=== PATIENT | male | born 1935 | race Caucasian/White ===

== ENCOUNTER 2018-05-30 19:16 | Inpatient (IN) ==
--- NOTE | 2018-05-30 19:37 | ED ---
[facility] General Chief complaint: Neuro Symptoms/Deficit Stated complaint: Chest pain Time Seen by Provider: 05/30/18 19:33 Source: patient Mode of arrival: ambulatory Limitations: no limitations History of Present Illness HPI narrative: 82yo M with PMH of HTN and DM presents to the ED for evaluation today because at 4pm he started having numbness in left arm along with some left arm weakness. Then started having numbness in left face and left tongue as well as left leg weakness. Said his symptoms have pretty much resolved except for a very mild numbness in left tongue and face. Denies any history of stroke. Denies any fever, cough, chest pain, sob, n/v, abdominal pain, focal weakness or numbness. Related Data Home Medications Medication Instructions Recorded Confirmed metformin 500 mg PO DAILY 05/30/18 05/30/18 tamsulosin 0.4 mg PO DAILY 05/30/18 05/30/18 Allergies Allergy/AdvReac Type Severity Reaction Status Date / Time No Known Allergies Allergy Severe Uncoded 12/24/09 09:29 Review of Systems ROS Unobtainable All other systems reviewed negative except as stated in HPI [facility] Social History Social History Substance History: No History of Abuse Smoking Status: Never smoker How Often Do You Have a Drink Containing Alcohol: Never Recent Travel in [facility] within the Last 8 Weeks: Yes Recent Out of Country Travel within the Last 8 Weeks: No Exam Narrative Exam Narrative: GENERAL: 82yo M not in distress. SKIN: Focused skin assessment warm/dry. HEAD: Atraumatic. Normocephalic. EYES: Pupils equal and round at 3mm bilaterally. EOMI. ENT: No nasal bleeding or discharge. Mucous membranes pink and moist. NECK: Trachea midline. No JVD. CARDIOVASCULAR: Regular rate and rhythm. No murmur appreciated. RESPIRATORY: No accessory muscle use. Clear to auscultation. Breath sounds equal bilaterally. GASTROINTESTINAL: Abdomen soft, non-tender, nondistended. MUSCULOSKELETAL: No obvious deformities. No clubbing. No cyanosis. No edema. NEUROLOGICAL: Awake and alert. No obvious cranial nerve deficits. Motor grossly within normal limits in all extremities. Sensation equal in bilateral face, arms and legs. Normal speech. NIH stroke scale 0. PSYCHIATRIC: Appropriate mood and affect; insight and judgment normal. Course Initial Documented Vital Signs Temperature 98.1 F 05/30/18 19:25 Pulse Rate 75 05/30/18 19:25 Respiratory Rate 18 05/30/18 19:25 Blood Pressure 155/79 H 05/30/18 19:25 Pulse Oximetry 97 05/30/18 19:25 Last Documented Vital Signs Temperature 98.1 F 05/30/18 19:25 Pulse Rate 62 05/30/18 23:40 Respiratory Rate 16 05/30/18 23:40 Blood Pressure 173/74 H 05/30/18 23:40 Pulse Oximetry 95 05/30/18 23:40 Medical Decision Making MDM Narrative Medical decision making narrative: 82yo M here with left sided numbness/ weakness today that has resolved mostly. Still feels like left face and tongue is not quite back to baseline but sensation is equal on exam. Labs reviewed, no leukocytosis. H/H normal. BUN mildly elevated at 20. CT brain showed no acute intracranial abnormality. Pt given aspirin. Discussed with Dr. Mitchell for observation for TIA work up and accepted to his service. Differential Diagnosis Differential Diagnosis: TIA vs. lacunar infarct Lab Data Result diagrams: 05/30/18 19:25 05/30/18 19:25 Lab Results 05/30/18 05/30/18 05/30/18 Range/Units 19:25 19:25 19:25 CBC w Diff Auto diff final WBC 7.4 (4.0-11.0) th/mm3 RBC 4.79 (4.50-5.90) mil/mm3 Hgb 14.3 (13.0-17.0) gm/dL Hct 42.5 (39.0-51.0) % MCV 88.9 (80.0-100.0) fL MCH 29.9 (27.0-34.0) pg MCHC 33.7 (32.0-36.0) % RDW 13.1 (11.6-17.2) % Plt Count 244 (150-450) th/mm3 MPV 8.4 (7.0-11.0) fL Neut % (Auto) 60.1 (16.0-70.0) % Lymph % (Auto) 23.5 (9.0-44.0) % [place] % (Auto) 8.6 H (0.0-8.0) % Eos % (Auto) 7.0 H (0.0-4.0) % Baso % (Auto) 0.8 (0.0-2.0) % Neut # (Auto) 4.5 (1.8-7.7) th/mm3 Lymph # (Auto) 1.7 (1.0-4.8) th/mm3 [place] # (Auto) 0.6 (0.0-0.9) th/mm3 Eos # (Auto) 0.5 H (0.0-0.4) th/mm3 Baso # (Auto) 0.1 (0.0-0.2) th/mm3 WBC Differential . Differential Comment . PT 10.3 (9.8-11.6) sec INR 1.0 Ratio APTT 25.4 (24.3-30.1) sec Sodium 138 (136-145) meq/L Potassium 4.0 (3.5-5.1) meq/L Chloride 106 (98-107) meq/L Carbon Dioxide 24.3 (21.0-32.0) meq/L Anion Gap 8 (5-15) meq/L BUN 20 H (7-18) mg/dL Creatinine 1.00 (0.60-1.30) mg/dL Estimated GFR 72 L (>89) mL/min Random Glucose 143 H (74-106) mg/dL Calcium 8.5 (8.5-10.1) mg/dL Imaging Data Radiologist's impression: Head CT 05/30/18 19:33 CONCLUSION: 1. No acute intracranial abnormalities. . Discharge Plan Discharge Disposition Patient Disposition: 30 Still Patient Physicians Team ED Provider: Maliha Sharif Primary Care Provider: Wilbert Spain Attending Provider: Cipriano Mitchell Status ED Status: Left Department Discharge Information Discharge Date/Time: 05/30/18 23:45
[2018-05-30 19:51] LABS: Baso # (Auto) 0.1 th/mm3 (0.0-0.2); Baso % (Auto) 0.8 % (0.0-2.0); Eos # (Auto) 0.5 th/mm3 (0.0-0.4); Hematocrit 42.5 % (39.0-51.0); Hemoglobin 14.3 gm/dL (13.0-17.0); Lymph # (Auto) 1.7 th/mm3 (1.0-4.8); Lymph % (Auto) 23.5 % (9.0-44.0); Mean Corpuscular HGB Conc 33.7 % (32.0-36.0); Mean Corpuscular Hemoglobin 29.9 pg (27.0-34.0); Mean Corpuscular Volume 88.9 fL (80.0-100.0); Mean Platelet Volume 8.4 fL (7.0-11.0); Mono # (Auto) 0.6 th/mm3 (0.0-0.9); Mono % (Auto) 8.6 % (0.0-8.0); Neut # (Auto) 4.5 th/mm3 (1.8-7.7); Neut % (Auto) 60.1 % (16.0-70.0); Platelet Count 244 th/mm3 (150-450); Red Blood Count 4.79 mil/mm3 (4.50-5.90); Red Cell Distribution Width 13.1 % (11.6-17.2); White Blood Count 7.4 th/mm3 (4.0-11.0)
[2018-05-30 20:02] LABS: Calcium 8.5 mg/dL (8.5-10.1); Carbon Dioxide 24.3 meq/L (21.0-32.0)
[2018-05-30 20:07] LABS: Activated Partial Thrombo Time 25.4 sec (24.3-30.1); Prothrombin Time 10.3 sec (9.8-11.6)
--- NOTE | 2018-05-30 20:17 | CT ---
EXAM DATE: 05/30/2018 8:05 PM EDT AGE/SEX: 82 years / Male INDICATIONS: Weakness and numbness left side of body and tongue. CLINICAL DATA: This is the patient's initial encounter. Patient reports that signs and symptoms have been present for 1 day and indicates a pain score of 0/10. MEDICAL/SURGICAL HISTORY: None. None. RADIATION DOSE: 57.29 CTDI (mGy) COMPARISON: No prior exams available for comparison. TECHNIQUE: CT of the head without contrast. Using automated exposure control and adjustment of the mA and/or kV according to patient size, radiation dose was kept as low as reasonably achievable to ob tain optimal diagnostic quality images. DICOM format image data is available electronically for revi ew and comparison. FINDINGS: Cerebrum: The ventricles are normal for age. No evidence of midline shift, mass lesion, hemorrhage or acute infarction. No extraaxial fluid collections are seen. Posterior Fossa: The cerebellum and brainstem are intact. The 4th ventricle is midline. The cerebe llopontine angle is unremarkable. Extracranial: The visualized portion of the orbits is intact. Skull: The calvaria is intact. No evidence of skull fracture. CONCLUSION: 1. No acute intracranial abnormalities. . Electronically signed by: Gurdeep Peace MD 05/30/2018 8:16 PM EDT
[2018-05-30] MEDS ORDERED: Aspirin 325 MG Tablet PO ONE (20:50)
[2018-05-30] MEDS ORDERED: Dextrose 50% in Water 50 ML Vial IV.PUSH PRN (21:36)
[2018-05-31] MEDS: Insulin NovoLOG Aspart Correctional Sugar Inj SQ SCH ×4 (08:00→22:15)
[2018-05-31] MEDS: Aspirin 325 MG Tablet PO SCH (08:45)
--- NOTE | 2018-05-31 08:51 | US ---
EXAM DATE: 05/31/2018 8:41 AM EDT AGE/SEX: 82 years / Male INDICATIONS: Left sided numbness and weakness. CLINICAL DATA: This is the patient's initial encounter. Patient reports that signs and symptoms have been present for 1 day and indicates a pain score of 0/10. MEDICAL/SURGICAL HISTORY: Hypertension. Hypercholesterolemia. Esophageal polyp. Pre-diabetes. . Nasal surgery. COMPARISON: No prior exams available for comparison. VELOCITY PARAMETERS: ICA/CCA Ratio: Right 3.5 , Left 0.6 ICA: Right 181 cm/sec, Left 55 cm/sec CCA: Right 51 cm/sec, Left 91 cm/sec ECA: Right 129 cm/sec, Left 129 cm/sec Vertebral: Right 44 cm/sec antegrade, Left 39 cm/sec antegrade FINDINGS: Right Carotid: There is moderate calcified atherosclerotic plaquing at the carotid bifurcation. There is some increased velocity within the right internal carotid artery. There is also some tortuosity o f the common carotid artery and internal carotid artery. Left Carotid: Mild arteriosclerotic plaque is visualized. The waveforms are within normal limits. Other: None. CONCLUSION: 1. Moderate calcified atherosclerotic plaquing at the right carotid bifurcation. There is elevated v elocity within the right internal carotid artery suggestive of at least a moderate stenosis. If clini jose ramon indicated, a CTA of the carotids could be performed for further evaluation. 2. Mild atherosclerotic plaquing at the left carotid bifurcation. No focal high-grade or hemodynamic ally significant stenosis. Electronically signed by: Arnel Corona MD 05/31/2018 8:49 AM EDT
--- NOTE | 2018-05-31 11:07 | MR ---
EXAM DATE: 05/31/2018 10:50 AM EDT AGE/SEX: 82 years / Male INDICATIONS: CVA. Left sided weakness. CLINICAL DATA: This is the patient's initial encounter. Patient reports that signs and symptoms have been present for 1 day and indicates a pain score of 0/10. MEDICAL/SURGICAL HISTORY: None. . Throat surgery. COMPARISON: No prior exams available for comparison. TECHNIQUE: 3D [id number] MRA was performed. Source images, multiplanar STS MIP, and 3D volum e MIP reconstructions were reviewed. FINDINGS: There is excellent visualization of the major intracranial arteries out to the second-order branch ve ssels. There appears to be a focal short segment stenosis involving the P2 segment on the right side. Otherwise, the vessels surrounding the tunica-biloxi of [place] are patent. No cerebral aneurysm or AV malfo rmation is demonstrated.. CONCLUSION: 1. Focal short segment stenosis involving the P2 segment on the right. 2. Otherwise, the rest the examination is unremarkable. Electronically signed by: Arnel Corona MD 05/31/2018 11:06 AM EDT
--- NOTE | 2018-05-31 11:10 | MR ---
EXAM DATE: 05/31/2018 10:50 AM EDT AGE/SEX: 82 years / Male INDICATIONS: CVA. Left sided weakness. CLINICAL DATA: This is the patient's initial encounter. Patient reports that signs and symptoms have been present for 1 day and indicates a pain score of 0/10. MEDICAL/SURGICAL HISTORY: None. . Throat surgery. COMPARISON: [facility], CT HEAD W/O CONTRAST, 05/30/2018. . TECHNIQUE: Multiplanar, multisequence examination of the brain was performed without contrast. FINDINGS: Cerebrum: The ventricles are normal for age. No evidence of midline shift, mass lesion, hemorrhage. . No extraaxial fluid collections are seen. The pituitary gland and suprasellar cistern are normal in configuration. White Matter: No significant signal abnormalities are seen in the white matter. There are some mild chronic white matter changes characteristic for patient's age. Posterior Fossa: The cerebellum and brainstem are intact. The 4th ventricle is midline. The cerebel lopontine angle is unremarkable. The cerebellar tonsils are normal in position. Diffusion Imaging: There is a focal small area of restricted diffusion involving the right thalamus consistent with a small focal acute infarction. The focal small acute infarction measures approximate ly 8 mm. Extracranial: The visualized portions of the orbits and paranasal sinuses are unremarkable. CONCLUSION: 1. Small focal acute infarction measuring approximately 8 mm in the right thalamic area. 2. Bilateral cortical atrophy and chronic white matter changes characteristic for patient's age. Electronically signed by: Arnel Corona MD 05/31/2018 11:09 AM EDT
[2018-05-31 11:35] LABS: Chol/HDL Ratio 4.25 Ratio; HDL Cholesterol 43.7 mg/dL (40.0-60.0)
--- NOTE | 2018-05-31 11:50 | P.HP ---
History of Present Illness Primary Care Physician: Wilbert Spain DO Chief Complaint: Left-sided numbness and paresthesia History of Present Illness: 82-year-old [place] male with known history of hypertension, hyperlipidemia, diabetes who was noted to emergency department because acute onset of neurological symptoms. Patient indicates that he had acute onset of left upper extremity numbness, paresthesia, weakness, left facial numbness, paresthesia with some numbness to the left side of his tongue. Because of that the patient came directly to the hospital for evaluation. Patient presented within 1 hour of onset of symptoms. Patient had evaluation done emergency department. NIH score was 0. Patient has CT scan done which did not indicate any acute abnormality. Is recommended by the ER physician that the patient be observed in the hospital for further evaluation and management. 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 This was explained to the patient extensively. Also spoke with the patient's daughter and son-in-law who are both physicians, hospitalist in [facility]. Family members indicated the patient is likely been noncompliant with his treatment for hypertension, hyperlipidemia. Patient states that he still has residual numbness and paresthesia of the left upper and lower extremities. Still having some difficulty with speech and numbness of the left side of his tongue. - Diagnosis (1) Acute cerebrovascular accident (CVA) Review of Systems All other systems reviewed negative except as stated in HPI Neurologic: Reports abnormal speech, Reports localized weakness, Reports tingling/numbness/burning sensations, Reports weakness PMFSH - History History Provided By: Patient - Medical History Medical History: Medical History (Last Reviewed 05/31/18 @ 11:23 by LUIS CARLOS Parekh) Esophageal polyp High cholesterol Hypertension Pre-diabetes - Surgical History Surgical History: Surgical History (Last Updated 05/31/18 @ 11:23 by LUIS CARLOS Parekh) History of nasal surgery Polyp in nasopharynx - Family History Family History: Family History (Last Updated 05/31/18 @ 11:24 by LUIS CARLOS Parekh) Mother History of diabetes mellitus Sister History of diabetes mellitus - Tobacco History Second Hand Smoke Exposure: No Tobacco Use In Past 30 Days: No Smoking Status: Never smoker - Alcohol History How Often Do You Have a Drink Containing Alcohol: Monthly or less - Substance Use History Substance History: No History of Abuse - Travel History Recent Travel in the [facility] Within the Last 8 Weeks: Yes Recent Travel Out of the Country Within the Last 8 Weeks: No - Immunization History Tetanus Immunization: Unsure Hx Influenza Vaccine This Season: No Medications and Allergies Active Medications: Active Medications Aspirin (Aspirin) 325 mg PO DAILY [facility] Last Admin: 05/31/18 08:45 Dose: 325 mg Dextrose (D50w Vial) 50 ml IV.PUSH UNSCH PRN PRN Reason: PER HYPOGLYCEMIA PROTOCOL Glucagon (Glucagon Inj) 1 mg OTHER PRN PRN PRN Reason: for Hypoglycemia Protocol Insulin Aspart (Novolog Insulin Correctional Sugar Inj) 0 unit SQ ACHS [facility]; Protocol Last Admin: 05/31/18 08:00 Dose: Not Given Allergies Allergy/AdvReac Type Severity Reaction Status Date / Time No Known Allergies Allergy Severe Uncoded 12/24/09 09:29 Home Medications Medication Instructions Recorded Confirmed Type metformin 500 mg PO DAILY 05/30/18 05/30/18 History tamsulosin 0.4 mg PO DAILY 05/30/18 05/30/18 History Exam Vital signs: Vital Signs 05/30/18 19:25 05/30/18 20:55 05/30/18 21:55 Temperature 98.1 F Pulse Rate 75 78 70 Respiratory Rate 18 18 16 Blood Pressure 155/79 H 155/87 H 175/92 H Pulse Oximetry 97 98 95 05/30/18 23:40 05/31/18 00:00 05/31/18 01:00 Temperature 97 F L Pulse Rate 62 70 78 Respiratory Rate 16 20 Blood Pressure 173/74 H 150/78 H Pulse Oximetry 95 97 05/31/18 01:32 05/31/18 04:00 05/31/18 08:50 Temperature 96.4 F L 97 F L 98.7 F Pulse Rate 110 H 64 79 Respiratory Rate 20 20 16 Blood Pressure 130/82 165/79 H 189/97 H Pulse Oximetry 99 97 97 Intake & Output 05/30/18 05/31/18 05/31/18 18:59 06:59 18:59 Intake Total 200 / 200 Balance 200 / 200 Weight 86 kg Intake: Oral 200 / 200 Other: # Voids 2 Weight On Admission 86 kg Narrative: GENERAL: Well-developed, well-nourished, in no acute distress. alert and orientated HEENT: Head is normocephalic without any lesions or masses noted. Facial features have a mild droop on the left side. Eyes: Pupils equal round reactive to light. Extraocular muscles are intact. Conjunctivae were clear. Oropharyngeal : Pharynx without any erythema edema. Tongue is midline without deviation. Buccal mucosa is moist without any masses or lesions NECK: Supple without any masses. Trachea midline no deviation. No JVD, no bruits are appreciated CARDIAC: Regular rhythm, regular rate. S1/S2 are heard. No murmurs gallops or rubs. LUNGS: Clear to auscultation bilaterally. No wheeze, rhonchi or rales. No use of accessory muscles on inspiration or expiration. ABDOMEN: Soft, nontender. Nondistended. Bowel sounds heard in all 4 quadrants. No organomegaly or masses. Negative rebound, negative guarding EXTREMITIES: No edema, pulses are equal bilaterally. No cyanosis or clubbing NEUROLOGY: Mood and affect appear appropriate. Cranial nerves II through XII grossly intact. Muscle strength 4/5 in the left upper extremity, 5/5 in right upper and bilateral lower extremities bilaterally. Deep tendon reflexes are 2+ in upper and lower extremities bilaterally. Results - Labs CBC & Chem 7: 05/30/18 19:25 05/30/18 19:25 Labs: Laboratory Results - last 24 hr 05/30/18 05/30/18 05/30/18 19:25 19:25 19:25 CBC w Diff Auto diff final WBC 7.4 RBC 4.79 Hgb 14.3 Hct 42.5 MCV 88.9 MCH 29.9 MCHC 33.7 RDW 13.1 Plt Count 244 MPV 8.4 Neut % (Auto) 60.1 Lymph % (Auto) 23.5 [place] % (Auto) 8.6 H Eos % (Auto) 7.0 H Baso % (Auto) 0.8 Neut # (Auto) 4.5 Lymph # (Auto) 1.7 [place] # (Auto) 0.6 Eos # (Auto) 0.5 H Baso # (Auto) 0.1 WBC Differential . Differential Comment . PT 10.3 INR 1.0 APTT 25.4 Sodium 138 Potassium 4.0 Chloride 106 Carbon Dioxide 24.3 Anion Gap 8 BUN 20 H Creatinine 1.00 Estimated GFR 72 L POC Glucose Random Glucose 143 H Calcium 8.5 Triglycerides Cholesterol LDL Cholesterol, Calc HDL Cholesterol Cholesterol/HDL Ratio 05/31/18 05/31/18 07:08 07:59 CBC w Diff WBC RBC Hgb Hct MCV MCH MCHC RDW Plt Count MPV Neut % (Auto) Lymph % (Auto) [place] % (Auto) Eos % (Auto) Baso % (Auto) Neut # (Auto) Lymph # (Auto) [place] # (Auto) Eos # (Auto) Baso # (Auto) WBC Differential Differential Comment PT INR APTT Sodium Potassium Chloride Carbon Dioxide Anion Gap BUN Creatinine Estimated GFR POC Glucose 111 H Random Glucose Calcium Triglycerides 110 Cholesterol 186 LDL Cholesterol, Calc 120 H HDL Cholesterol 43.7 Cholesterol/HDL Ratio 4.25 - Imaging Impressions Head CT 05/30/18 19:33 CONCLUSION: 1. No acute intracranial abnormalities. . Carotid Doppler Study 05/31/18 00:00 CONCLUSION: 1. Moderate calcified atherosclerotic plaquing at the right carotid bifurcation. There is elevated velocity within the right internal carotid artery suggestive of at least a moderate stenosis. If clinically indicated, a CTA of the carotids could be performed for further evaluation. 2. Mild atherosclerotic plaquing at the left carotid bifurcation. No focal high -grade or hemodynamically significant stenosis. Head MRI 05/31/18 00:00 CONCLUSION: 1. Small focal acute infarction measuring approximately 8 mm in the right thalamic area. 2. Bilateral cortical atrophy and chronic white matter changes characteristic for patient's age. Head MRA 05/31/18 00:00 CONCLUSION: 1. Focal short segment stenosis involving the P2 segment on the right. 2. Otherwise, the rest the examination is unremarkable. Caprini VTE Risk Assessment Caprini VTE Risk Assessment: Moderate/High Risk (score >= 2) Caprini Risk Assessment Model: Point Value = 1 Point Value = 2 Point Value = 3 Point Value = 5 Age 41-60 Minor surgery BMI > 25 kg/m2 Swollen legs Varicose veins or History of unexplained or recurrent spontaneous Oral contraceptives or hormone replacement Sepsis (< 1 month) Serious lung disease, including pneumonia (< 1 month) Abnormal pulmonary function Acute myocardial infarction Congestive heart failure (< 1 month) History of inflammatory bowel disease Medical patient at bed rest Age 61-74 Arthroscopic surgery Major open surgery (> 45 min) Laparoscopic surgery (> 45 min) Malignancy Confined to bed (> 72 hours) Immobilizing plaster cast Central venous access Age >= 75 History of VTE Family history of VTE Factor V Leiden Prothrombin [id number] Lupus anticoagulant Anticardiolipin antibodies Elevated serum homocysteine Heparin-induced thrombocytopenia Other congenital or acquired thrombophilia Stroke (< 1 month) Elective arthroplasty Hip, pelvis, or leg fracture Acute spinal cord injury (< 1 month) Prophylaxis Regimen: Total Risk Factor Score Risk Level Prophylaxis Regimen 0-1 Low Early ambulation 2 Moderate Order ONE of the following: *Sequential Compression Device (SCD) *Heparin 5000 units SQ BID 3-4 Higher Order ONE of the following medications: *Heparin 5000 units SQ TID *Enoxaparin/Lovenox 40 mg SQ daily (WT < 150 kg, CrCl > 30 mL/min) *Enoxaparin/Lovenox 30 mg SQ daily (WT < 150 kg, CrCl > 10-29 mL/min) *Enoxaparin/Lovenox 30 mg SQ BID (WT < 150 kg, CrCl > 30 mL/min) AND/OR *Sequential Compression Device (SCD) 5 or more Highest Order ONE of the following medications: *Heparin 5000 units SQ TID (Preferred with Epidurals) *Enoxaparin/Lovenox 40 mg SQ daily (WT < 150 kg, CrCl > 30 mL/min) *Enoxaparin/Lovenox 30 mg SQ daily (WT < 150 kg, CrCl > 10-29 mL/min) *Enoxaparin/Lovenox 30 mg SQ BID (WT < 150 kg, CrCl > 30 mL/min) AND *Sequential Compression Device (SCD) Assessment and Plan - Assessment (1) Acute cerebrovascular accident (CVA) Code(s): I63.9 - Cerebral infarction, unspecified Status: Acute - Plan Acute cerebrovascular accident, NIH score 0 -Patient presented with acute onset of left-sided numbness to include his face, tongue, left arm, left leg. -CT scan was done which did not indicate any acute abnormality -MRI of the brain was performed which did show a focal infarct measuring 8 mm in the right thalamic -MRA of the brain was performed which did show short area of stenosis in the P2 -Carotid ultrasound did show increased velocities on the right side, recommending CTA of the carotids -Obtain CTA of the carotid arteries -Awaiting echocardiogram -Awaiting PT/OT/ST evaluations -Continue permissive hypertension -Consult neurologist for recommendations -Continue full dose aspirin Hypertension, hyperlipidemia: Untreated -We will start blood pressure medication once cleared by neurologist -Start atorvastatin 10 mg daily -Awaiting lipid panel Diabetes -Awaiting hemoglobin A1c -Accu-Cheks with sliding scale insulin DVT prevention -Sequential compression devices Discussed Condition With: Patient, daughter, son-in-law, nursing staff
--- NOTE | 2018-05-31 13:30 | MB ---
cc: Jose E Wilson MD DATE: 05/31/2018 HISTORY OF PRESENT ILLNESS: This 82-year-old right-handed man, hypertension, non-insulin dependent diabetes, hypercholesterolemia, does not take an aspirin or any blood thinners a day. Yesterday at 6:00 p.m., he notes his left face and arm was tingling and his left leg felt a little bit weak. A little bit of slurred speech. He feels like he has been biting the left corner of his mouth a little bit. He subsequently came into the hospital. No chest pain, palpitations, or headache. REVIEW OF SYSTEMS: He denies any OH, stent, angioplasty, atrial fibrillation, Coumadin; renal, hepatic, or pulmonary disease; thyroid disease, lupus, ulcer, cancer, seizure or stroke. SOCIAL HISTORY: He is not a smoker or drinker. Her lives with his . FAMILY HISTORY: Positive for cancer in a sister. Negative for seizure or stroke. MEDICATIONS AT HOME: 1. Tamsulosin. 2. Metformin. PHYSICAL EXAMINATION: VITAL SIGNS: Sinus rhythm. Afebrile, blood pressure 189/97. Heart rate 110-64. Regular blood pressure 155/79. Respiratory rate 16. NECK: There are no carotid bruits. HEART: Regular rate and rhythm. I did not detect a murmur. NEUROLOGIC: Pupils are equal. Visual jacob are full. Extraocular movements intact without nystagmus. Face is symmetric with normal sensation, except for just a hint of decreased pinprick in the left upper lip, compared to the right. Tongue was midline. There is no facial asymmetry. Speech is fluent. He is not aphasic. There is no slurred speech. There is a slight left drift. He had normal strength in upper and lower extremities bilaterally. DTRs are trace throughout. Toes are downgoing bilaterally. Pinprick is normal throughout, but he feels a little bit of tingling on the left hand. He is ataxic on left [id number], not on the right. LABORATORY DATA: CBC is normal. Basic metabolic profile normal. Glucose 111. LDL 120. Coags are normal. IMAGING STUDIES: He had an MRI of the brain done that shows a right thalamic infarct. MRI shows small white matter change right white matter and a small white matter change in the right thalamus on the FLAIR image, diffusion image shows an acute small right thalamic infarct correlates to the FLAIR change. No hemorrhage is noted. On MRA of the head, right P2 stenosis. Review of the films, there does appear to be some signal drop out right P2 region. Basilar artery looks fine. The vertebral arteries distally look fine. On carotid ultrasound, moderate stenosis on the right. IMPRESSION AND RECOMMENDATION: The MRI of the brain looks like a right thalamic infarct. However, it is possible a clot could have been thrown to the right SUPPORT CLERK and we need to do an echo and Holter, troponin and MRA of the neck and look at the vertebral arteries and some additional blood work. For now, sn aspirin a day is fine and his statin has been started. A CTA has been ordered to look at the vertebral arteries and also the carotid if there is any carotid disease and I will also look at the right P2 a little bit better also. I note the posterior cerebral arteries come off the vertebrobasilar system. MD ALTAGRACIA Arshad/EUGENIE , 12:58 PM , 01:09 PM
--- NOTE | 2018-05-31 14:11 | ECHRPT ---
Indication: CVA/TIA CONCLUSIONS The left ventricular systolic function is moderately reduced with an estimated ejection fraction in the range of 40-45%. Wall thickness is measured at the upper limits of normal. Normal left ventricular size. The left atrial size is moderately dilated. Mild mitral valve regurgitation. There is mild tricuspid valve regurgitation. The estimated pulmonary arterial pressure is 30.6 mmHg. Mild mitral valve regurgitation. BP: / HR: Rhythm: Sinus MEASUREMENTS (Male / Female) Normal Values Technical Quality:Fair 2D ECHO LV Diastolic Diameter PLAX 5.5 cm 4.2 - 5.9 / 3.9 - 5.3 cm LV Systolic Diameter PLAX 4.5 cm IVS Diastolic Thickness 1.1 cm 0.6 - 1.0 / 0.6 - 0.9 cm LVPW Diastolic Thickness 1.0 cm 0.6 - 1.0 / 0.6 - 0.9 cm LV Relative Wall Thickness 0.4 LVOT Diameter 2.1 cm M-MODE Aortic Root Diameter MM 3.3 cm LA Systolic Diameter MM 5.2 cm LA Ao Ratio MM 1.6 AV Cusp Separation MM 2.3 cm DOPPLER AV Peak Velocity 121.0 cm/s AV Peak Gradient 5.9 mmHg LVOT Peak Velocity 109.0 cm/s LVOT Peak Gradient 4.8 mmHg AV Area Cont Eq pk 3.1 cm MR Peak Velocity 504.5 cm/s MR Peak Gradient 101.8 mmHg LV E' Lateral Velocity 12.9 cm/s LV E' Septal Velocity 5.9 cm/s TR Peak Velocity 227.0 cm/s TR Peak Gradient 20.6 mmHg Right Atrial Pressure 10.0 mmHg Pulmonary Artery Systolic Pressu 30.6 mmHg Right Ventricular Systolic Press 30.6 mmHg PV Peak Velocity 77.4 cm/s PV Peak Gradient 2.4 mmHg FINDINGS LEFT VENTRICLE The left ventricular systolic function is moderately reduced with an estimated ejection fraction in the range of 40-45%. Wall thickness is measured at the upper limits of normal. Normal left ventricular size. RIGHT VENTRICLE Normal right ventricular size and systolic function. LEFT ATRIUM The left atrial size is moderately dilated. RIGHT ATRIUM The right atrial size is normal. ATRIAL SEPTUM Normal atrial septal thickness without atrial level shunting by limited color doppler interrogation. AORTA The aortic root and proximal ascending aorta are normal in size on limited imaging. MITRAL VALVE Mild mitral valve regurgitation. AORTIC VALVE Trileaflet aortic valve. No aortic valve stenosis or regurgitation. TRICUSPID VALVE There is mild tricuspid valve regurgitation. The estimated pulmonary arterial pressure is 30.6 mmHg. PULMONARY VALVE Mild pulmonary valve regurgitation. VESSELS The inferior vena cava is normal in size. PERICARDIUM No pericardial effusion. Reji Watson MD, FACC, [facility] (Electronically Signed) Final Date:31 May 2018 14:09
[2018-05-31] MEDS: Sod Chloride 0.9% Inj 1,000 ML IV.CONT SCH (14:24)
--- NOTE | 2018-05-31 15:08 | CT ---
EXAM DATE: 05/31/2018 2:55 PM EDT AGE/SEX: 82 years / Male INDICATIONS: Resolving left arm, facial and tongue tingling and numbness. Evaluate for embolism. CLINICAL DATA: This is the patient's initial encounter. Patient reports that signs and symptoms have been present for 1 day and indicates a pain score of 0/10. MEDICAL/SURGICAL HISTORY: Hypertension. None. RADIATION DOSE: 42.28 CTDI (mGy) ; Combined studies COMPARISON: [facility], CT HEAD W/O CONTRAST, 05/30/2018. . TECHNIQUE: Volumetric scanning was performed using a multi-row detector CT scanner during bolus infu harvey of 100 ml Omnipaque 350 (iohexol) nonionic water-soluble contrast as a cumulative dose for mult iple exams. The data was post processed with a variety of visualization algorithms including full v olume maximum intensity projection, multi-planar sliding thin slab reformation, curved planar reforma tion, and surface rendering techniques. Using automated exposure control and adjustment of the mA an d/or kV according to patient size, radiation dose was kept as low as reasonably achievable to obtain optimal diagnostic quality images. DICOM format image data is available electronically for review an d comparison. FINDINGS: There is excellent visualization of the major intracranial arteries out to the second-order branch ve ssels. There is no evidence for aneurysm, vessel truncation or stenosis, and no evidence for vascula r malformation. CONCLUSION: 1. Unremarkable MRA of the brain. Electronically signed by: Arnel Corona MD 05/31/2018 3:07 PM EDT
[2018-05-31 15:12] LABS: Thyroid Stimulating Hormone 0.625 uIU/mL (0.358-3.740)
--- NOTE | 2018-05-31 15:32 | CT ---
EXAM DATE: 05/31/2018 2:54 PM EDT AGE/SEX: 82 years / Male INDICATIONS: Resolving left arm, facial and tongue tingling and numbness. Abnormal carotid ultrasou nd. CLINICAL DATA: This is the patient's initial encounter. Patient reports that signs and symptoms have been present for 1 day and indicates a pain score of 0/10. MEDICAL/SURGICAL HISTORY: Hypertension. None. RADIATION DOSE: 42.28 CTDI (mGy) ; Combined studies COMPARISON: No prior exams available for comparison. TECHNIQUE: Volumetric scanning was performed using a multirow detector CT scanner during bolus infus ion of 100 ml Omnipaque 350 (iohexol) nonionic water-soluble contrast as a cumulative dose for multi ple exams. The data was postprocessed with a variety of visualization algorithms including full-vol ume maximum intensity projection, multiplanar sliding thin-slab reformation, curved-planar reformatio n, and surface-rendering techniques. Using automated exposure control and adjustment of the mA and/o r kV according to patient size, radiation dose was kept as low as reasonably achievable to obtain opt imal diagnostic quality images. DICOM format image data is available electronically for review and c omparison. Percent stenosis is calculated using the diameter of the stenotic region over the diameter of the nor mal distal internal carotid artery. FINDINGS: Aortic Arch: There is a three-vessel origin of the great vessels from the aorta. No evidence of ost ial narrowing Right Carotid: The common carotid artery is intact. Eccentric calcified plaque extending from the ca rotid bulb to the origin of the internal carotid artery. There is resultant 45-50% stenosis. There is also sharp angulation of the proximal cervical segment with up to approximately 30% relative stenosi s secondary to the sharp angulation. There are carotid artery is otherwise patent to the skull base. The external carotid artery is intact. Left Carotid: The common carotid artery is intact. Mild calcified plaque extending from the carotid bulb to the proximal internal carotid artery with resultant less than 30% stenosis. Focal critical st enosis, up to 90%, the cavernous segment. The external carotid artery is intact. Vertebrals: The vertebral arteries have a symmetric diameter. No stenotic lesions are seen. General Findings: Lung apices are clear. Thyroid is unremarkable by CT. No significant adenopathy. CONCLUSION: 1. Abnormally elevated ultrasound velocities in the right carotid artery are likely related to a com bination of moderate stenosis and severe angulation of the proximal right internal carotid artery. Th ere is up to 45-50% stenosis of the proximal right internal carotid artery secondary to calcified javi que. There is up to 30% relative stenosis of the proximal internal carotid artery secondary to sharp angulation. 2. There is focal critical, up to 90%, stenosis of the cavernous left carotid artery secondary to ec centric noncalcified plaque. 3. Less than 30% stenosis of the left internal carotid artery origin secondary to eccentric calcifie d plaque. 4. Patent vertebral arteries bilaterally. Electronically signed by: Harpreet Lazo MD 05/31/2018 3:31 PM EDT
[2018-05-31 16:36] LABS: Hemoglobin A1c 7.5 % (4.3-6.0)
[2018-05-31 18:33] LABS: Folate 16.6 ng/mL (3.1-17.5)
[2018-06-01] MEDS: Sod Chloride 0.9% Inj 1,000 ML IV.CONT SCH ×2 (06:08→17:46)
[2018-06-01] MEDS: Aspirin 325 MG Tablet PO SCH (08:57)
[2018-06-01] MEDS: Insulin NovoLOG Aspart Correctional Sugar Inj SQ SCH ×3 (08:58→17:05)
[2018-06-01 11:11] LABS: Anti-Nuclear Antibody Screen Neg (Neg)
--- NOTE | 2018-06-01 13:42 | P.PN ---
Subjective Interval history: 82-year-old [place] male who is seen and examined today for follow-up on acute thalamic CVA. Patient is laying in bed. States that he is doing fantastic. He wants to go home today. I discussed with him that neurology is wanting further testing to be performed prior to him going home. Patient is very frustrated about that, however he will stay if he has to. He did want me to speak to his daughter who is a physician and practices hospital medicine. I spoke with her extensively on the patient's care, findings, treatment plan. Will start management of his blood pressure today. Patient remains afebrile. Physical Exam Vital signs: Vital Signs 05/31/18 14:06 05/31/18 18:12 05/31/18 20:00 Temperature 97.3 F L 97.7 F 98.2 F Pulse Rate 74 72 80 Respiratory Rate 16 18 18 Blood Pressure 175/98 H 174/84 H 158/84 H Pulse Oximetry 96 97 97 06/01/18 00:00 06/01/18 04:00 06/01/18 08:00 Temperature 97.2 F L 97.1 F L 97.6 F Pulse Rate 69 66 69 Respiratory Rate 18 18 18 Blood Pressure 153/79 H 159/83 H 180/90 H Pulse Oximetry 97 95 97 06/01/18 12:00 Temperature 97 F L Pulse Rate 72 Respiratory Rate 18 Blood Pressure 190/88 H Pulse Oximetry 99 Intake & Output 05/31/18 06/01/18 06/01/18 18:59 06:59 18:59 Intake Total 300 / 300 1480 / 1480 Balance 300 / 300 1480 / 1480 Weight 87.7 kg Intake: IV 1000 / 1000 NS Inj 1,000 ML @ 84 mls/hr IV. 1000 / 1000 CONT .[id number] SCOTT Rx#: [id number] Oral 300 / 300 480 / 480 Other: # Voids 3 4 Narrative: GENERAL: Well-developed, well-nourished, in no acute distress. alert and orientated HEENT: Head is normocephalic without any lesions or masses noted. Facial features have a mild droop on the left side. Eyes:Extraocular muscles are intact. Conjunctivae were clear. NECK: Supple without any masses. Trachea midline no deviation. No JVD, CARDIAC: Regular rhythm, regular rate. S1/S2 are heard. No murmurs gallops or rubs. LUNGS: Clear to auscultation bilaterally. No wheeze, rhonchi or rales. No use of accessory muscles on inspiration or expiration. ABDOMEN: Soft, nontender. Nondistended. Bowel sounds heard in all 4 quadrants. No organomegaly or masses. Negative rebound, negative guarding EXTREMITIES: No edema, pulses are equal bilaterally. No cyanosis or clubbing NEUROLOGY: Mood and affect appear appropriate. Cranial nerves II through XII grossly intact. Moving all extremities, speech is clear Results - Labs CBC & Chem 7: 05/30/18 19:25 05/30/18 19:25 Laboratory Results - last 24 hr 05/31/18 05/31/18 05/31/18 07:08 07:08 14:40 ESR 12 POC Glucose Hemoglobin A1c 7.5 H Vitamin B12 Folate TSH JUAN Screen Neg RPR Nonreactive 05/31/18 05/31/18 05/31/18 14:40 17:16 20:43 ESR POC Glucose 161 H 149 H Hemoglobin A1c Vitamin B12 1357 H Folate 16.6 TSH 0.625 JUAN Screen RPR 06/01/18 11:12 ESR POC Glucose 118 H Hemoglobin A1c Vitamin B12 Folate TSH JUAN Screen RPR - Imaging Impressions Head CTA 05/31/18 00:00 CONCLUSION: 1. Unremarkable MRA of the brain. Neck CTA 05/31/18 00:00 CONCLUSION: 1. Abnormally elevated ultrasound velocities in the right carotid artery are likely related to a combination of moderate stenosis and severe angulation of the proximal right internal carotid artery. There is up to 45-50% stenosis of the proximal right internal carotid artery secondary to calcified plaque. There is up to 30% relative stenosis of the proximal internal carotid artery secondary to sharp angulation. 2. There is focal critical, up to 90%, stenosis of the cavernous left carotid artery secondary to eccentric noncalcified plaque. 3. Less than 30% stenosis of the left internal carotid artery origin secondary to eccentric calcified plaque. 4. Patent vertebral arteries bilaterally. Assessment and Plan - Assessment (1) Acute cerebrovascular accident (CVA) Code(s): I63.9 - Cerebral infarction, unspecified Status: Acute - Plan Acute cerebrovascular accident, NIH score 0 -Patient presented with acute onset of left-sided numbness to include his face, tongue, left arm, left leg. -CT scan was done which did not indicate any acute abnormality -MRI of the brain was performed which did show a focal infarct measuring 8 mm in the right thalamic -MRA of the brain was performed which did show short area of stenosis in the P2 -Carotid ultrasound did show increased velocities on the right side, -CTA of the carotid artery did indicate 45-50% stenosis of the proximal right internal carotid secondary to calcified plaque. There is a focal critical up to 90% stenosis of the cavernous left carotid artery secondary to eccentric noncalcified plaque. -CTA of the brain did not indicate any acute abnormalities -Echocardiogram indicated ejection fraction 40-45% with mild left ventricular dysfunction. Right ventricle and atrium are normal size. There is mild tricuspid and mitral regurgitation -PT/OT/ST evaluations -Holter monitor: Awaiting to be removed and evaluated by cardiology -Consult neurologist for recommendations -Neurologist recommending cardiology consult for loop recorder placement -Telemetry was reviewed extensively. Patient does have rather frequent PVCs with episodes of bigeminy and trigeminy. -Continue full dose aspirin, neurologist is recommending heparin 5000 units subcutaneous every 12 hours and starting Coumadin for anticoagulation. -I discussed the patient's care, records, management with the patient's daughter Grace, who is a physician and a hospitalist. She indicates that she would like to speak to the neurologist concerning her father's care. Her information (phone number [phone]) was given to the neurologist for him to call her. After reviewing of all of the records. The daughter does understand her father's condition. She is in agreement with anticoagulation to include aspirin at this time. Does not want him started on Coumadin, since there is no objective data indicating atrial fibrillation. She is in agreement with loop recorder, however she would request that it can be done in outpatient setting. After discussion with her, will wait to discuss with the neurologist and the patient's daughter again prior to any further plans of care Hypertension, hyperlipidemia: Untreated -Start blood pressure medication -Start Lopressor 12.5 mg twice daily -Start lisinopril 10 mg daily -Continue atorvastatin 20 mg daily -LDL was 120 Diabetes -A1c 7.5 -Accu-Cheks with sliding scale insulin DVT prevention -Sequential compression devices Discussed Condition With: Discussed with neurologist Dr. Wilson: He is recommending the patient undergo loop recorder placement to evaluate for underlying arrhythmia to include atrial fibrillation. He is recommending that the patient is started on heparin 5000 units SQ twice daily. He is also indicating that the patient should be placed on Coumadin for anticoagulation. Discussed with local delivery truck driver Dr. Radames Novak: They indicate that loop recorder can not placed on the weekend. That we can arrange for him to have loop recorder done first thing Monday at the [facility]. Dr. Crum recommended that the consult be placed to him and he will do the procedure Monday. Discussed with Grace, patient's daughter: She states that she is a physician and is a hospitalist in [place]. Patient's case has been discussed with her extensively. She has spoken with the neurologist Dr. Wilson. She is in agreement with loop recorder placement. However, she has consulted with a neurologist that she is familiar with and they do not want to have Coumadin started at this time. They only want the patient to be on aspirin. She states that she has spoken with the patient extensively on his condition and treatment plan. He notifies me that the patient is in agreement and will pursue the loop recorder at this time. I notified her that arrangements are being made at this time and will plan on loop recorder to be placed on Monday. We will respect family wishes and have the patient on aspirin at this time.
[2018-06-01] MEDS ORDERED: Lisinopril 10 MG Tablet PO SCH (13:45)
[2018-06-01] MEDS: Metoprolol Tartrate 25 MG Tablet PO SCH ×2 (13:52→20:57)
--- NOTE | 2018-06-01 17:25 | P.PNNEU ---
Subjective Subjective Comments: No acute events reported No headache No chest pain No dyspnea Active Medications: Active Medications Aspirin (Aspirin) 325 mg PO DAILY [facility] Last Admin: 06/01/18 08:57 Dose: 325 mg Atorvastatin Calcium (Lipitor) 20 mg PO DAILY [facility] Last Admin: 06/01/18 08:58 Dose: 20 mg Dextrose (D50w Vial) 50 ml IV.PUSH UNSCH PRN PRN Reason: PER HYPOGLYCEMIA PROTOCOL Enalaprilat (Vasotec Inj) 1.25 mg IV.PUSH Q6H PRN PRN Reason: SBP>160, DBP>90 Glucagon (Glucagon Inj) 1 mg OTHER PRN PRN PRN Reason: for Hypoglycemia Protocol Sodium Chloride (Ns Inj) 1,000 mls @ 84 mls/hr IV.CONT .[id number] [facility] Last Admin: 06/01/18 06:08 Dose: 84 mls/hr Insulin Aspart (Novolog Insulin Correctional Sugar Inj) 0 unit SQ ACHS [facility]; Protocol Last Admin: 06/01/18 17:05 Dose: Not Given Lisinopril (Prinivil) 10 mg PO DAILY [facility] Last Admin: 06/01/18 13:52 Dose: 10 mg Metoprolol Tartrate (Lopressor) 12.5 mg PO BID [facility] Last Admin: 06/01/18 13:52 Dose: 12.5 mg Allergies/Adverse Reactions: Allergies Allergy/AdvReac Type Severity Reaction Status Date / Time No Known Allergies Allergy Severe Uncoded 12/24/09 09:29 Physical Exam Vital signs: Vital Signs 05/31/18 18:12 05/31/18 20:00 06/01/18 00:00 Temperature 97.7 F 98.2 F 97.2 F L Pulse Rate 72 80 69 Respiratory Rate 18 Blood Pressure 174/84 H 158/84 H 153/79 H Pulse Oximetry 97 97 97 06/01/18 04:00 06/01/18 08:00 06/01/18 12:00 Temperature 97.1 F L 97.6 F 97 F L Pulse Rate 66 69 72 Respiratory Rate 18 Blood Pressure 159/83 H 180/90 H 190/88 H Pulse Oximetry 95 97 99 06/01/18 15:42 Temperature 97.3 F L Pulse Rate 70 Respiratory Rate 18 Blood Pressure 160/80 H Pulse Oximetry 93 L Intake & Output 05/31/18 06/01/1818 18:59 06:59 18:59 Intake Total 300 / 300 1480 / 1480 Balance 300 / 300 1480 / 1480 Weight 87.7 kg Intake: IV 1000 / 1000 NS Inj 1,000 ML @ 84 mls/hr IV. 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 mild narrow only echo la 52 ef 40-50% ldl 120 plan I think the best route is coumadin to cover for possible afib with the lae and loop placed and statin if this can be instituted by med team with some sq hep started before first coumadin dose the best and would need daily inr over weekend step daughter i italked to and she thought he would not take meds but he says he did not in past but will now and agrees to coumdain med team contacted and they will work on it the coumadin will also cover the left stenosis ica well if fact in study with therapeutic inr those patients did better than antiplatelets for recurrent cva
[2018-06-01] MEDS: Lisinopril 10 MG Tablet PO SCH (20:57)
[2018-06-01] MEDS: Heparin - SQ 10,000 UNITS/ML Vial SQ SCH (21:06)
[2018-06-02] MEDS: Insulin NovoLOG Aspart Correctional Sugar Inj SQ SCH ×5 (00:25→22:44)
[2018-06-02] MEDS: Lisinopril 10 MG Tablet PO SCH ×2 (08:42→21:02)
[2018-06-02 08:43] LABS: INR 1.1 Ratio; Prothrombin Time 10.7 sec (9.8-11.6)
[2018-06-02] MEDS: Aspirin 325 MG Tablet PO SCH (08:43)
[2018-06-02] MEDS: Metoprolol Tartrate 25 MG Tablet PO SCH ×2 (08:43→21:02)
[2018-06-02] MEDS: Heparin - SQ 10,000 UNITS/ML Vial SQ SCH ×2 (08:44→22:20)
--- NOTE | 2018-06-02 09:38 | P.PN ---
Subjective Interval history: Patient seen and examined today for follow-up on acute CVA. Patient lying in bed comfortably. Denies any new complaints. States that he is doing quite well. Awaiting loop recorder replaced on Monday. Vital signs are stable, patient remains afebrile. Physical Exam Vital signs: Vital Signs 06/01/18 12:00 06/01/18 15:42 06/01/18 20:00 Temperature 97 F L 97.3 F L 96.4 F L Pulse Rate 72 70 70 Respiratory Rate 18 18 18 Blood Pressure 190/88 H 160/80 H 144/77 H Pulse Oximetry 99 93 L 94 L 06/02/18 00:00 06/02/18 07:34 Temperature 97.1 F L 96.8 F L Pulse Rate 59 L 52 L Respiratory Rate 18 20 Blood Pressure 153/81 H 157/74 H Pulse Oximetry 100 92 L Intake & Output 06/01/18 06/02/18 06/02/18 18:59 06:59 18:59 Intake Total 2820 / 2820 Balance 2820 / 2820 Intake: IV 1000 / 1000 NS Inj 1,000 ML @ 84 mls/hr IV. 1000 / 1000 CONT .[id number] SCOTT Rx#: [id number] Oral 1820 / 1820 Other: # Voids 9 3 # Bowel Movements 1 Narrative: GENERAL: Well-developed, well-nourished, in no acute distress. alert and orientated HEENT: Head is normocephalic without any lesions or masses noted. Facial features have a mild droop on the left side. Eyes:Extraocular muscles are intact. Conjunctivae were clear. NECK: Supple without any masses. Trachea midline no deviation. No JVD, CARDIAC: Regular rhythm, regular rate. S1/S2 are heard. No murmurs gallops or rubs. LUNGS: Clear to auscultation bilaterally. No wheeze, rhonchi or rales. No use of accessory muscles on inspiration or expiration. ABDOMEN: Soft, nontender. Nondistended. Bowel sounds heard in all 4 quadrants. No organomegaly or masses. Negative rebound, negative guarding EXTREMITIES: No edema, pulses are equal bilaterally. No cyanosis or clubbing NEUROLOGY: Mood and affect appear appropriate. Cranial nerves II through XII grossly intact. Moving all extremities, speech is clear Results - Labs CBC & Chem 7: 05/30/18 19:25 05/30/18 19:25 Laboratory Results - last 24 hr 05/31/18 06/01/18 06/01/18 07:08 11:12 17:02 PT INR POC Glucose 118 H 115 H JUAN Screen Neg RPR Nonreactive 06/02/18 07:30 PT 10.7 INR 1.1 POC Glucose JUAN Screen RPR - Procedures ECHOCARDIOGRAM CONCLUSIONS The left ventricular systolic function is moderately reduced with an estimated ejection fraction in the range of 40-45%. Wall thickness is measured at the upper limits of normal. Normal left ventricular size. The left atrial size is moderately dilated. Mild mitral valve regurgitation. There is mild tricuspid valve regurgitation. The estimated pulmonary arterial pressure is 30.6 mmHg. Mild mitral valve regurgitation. Assessment and Plan - Assessment (1) Acute cerebrovascular accident (CVA) Code(s): I63.9 - Cerebral infarction, unspecified Status: Acute - Plan Acute cerebrovascular accident, NIH score 0 -Patient presented with acute onset of left-sided numbness to include his face, tongue, left arm, left leg. -CT scan was done which did not indicate any acute abnormality -MRI of the brain was performed which did show a focal infarct measuring 8 mm in the right thalamic -MRA of the brain was performed which did show short area of stenosis in the P2 -Carotid ultrasound did show increased velocities on the right side, -CTA of the carotid artery did indicate 45-50% stenosis of the proximal right internal carotid secondary to calcified plaque. There is a focal critical up to 90% stenosis of the cavernous left carotid artery secondary to eccentric noncalcified plaque. -CTA of the brain did not indicate any acute abnormalities -Echocardiogram indicated ejection fraction 40-45% with mild left ventricular dysfunction. Right ventricle and atrium are normal size. There is mild tricuspid and mitral regurgitation -PT/OT/ST evaluations -Holter monitor: Awaiting to be removed and evaluated by cardiology -Consult neurologist for recommendations -Neurologist recommending cardiology consult for loop recorder placement -Telemetry was reviewed extensively. Patient does have rather frequent PVCs with episodes of bigeminy and trigeminy. -Continue full dose aspirin, neurologist is recommending heparin 5000 units subcutaneous every 12 hours and starting Coumadin for anticoagulation. -After much discussion with neurologist, vocational instructor, patient's family. His come to inclusion that the patient will stay in the hospital and have loop recorder placed on Monday. Respecting the patient family's wishes will only continue aspirin for anticoagulation at this time. Hypertension, hyperlipidemia: -Continue Lopressor 12.5 mg twice daily -Continue lisinopril 10 mg twice daily -Continue atorvastatin 20 mg daily -LDL was 120 Diabetes -A1c 7.5 -Accu-Cheks with sliding scale insulin -We will restart metformin this afternoon, 48 hours after contrasted images DVT prevention -Sequential compression devices Discharge Planning: Discharge planning on 06/04/18 after loop recorder placement
--- NOTE | 2018-06-02 14:43 | HM ---
Date Performed: 05/31/2018 Time Performed: 18:30:00 HOOKUP DATE: 05/31/18 06:30:00 PM Georgina ANALYSIS START TIME: 05/31/2018 6:35:00 PM ANALYSIS END TIME: 06/01/2018 2:42:40 PM PATIENT AGE: 82 PATIENT HEIGHT: 73 PATIENT WEIGHT: 189 DRUG LIST: ROOM 8329 PATIENT DIAGNOSIS: TIA TEST NARRATIVE: The patient's average heart rate was 69 BPM. No episodes of tachycardia wer e noted. Heart rates less than 50 BPM were noted < 1% of the time. No pauses exceeding 2.0 secon ds were noted. 10806 ventricular ectopics, which represented 27% of the total beat count, were no gavin. The highest ventricular ectopic frequency occurred from 09:00 AM to 10:00 AM Fri. During this time 1516 VE(s) occurred. [place] [address] isolated beat(s), as 2733 coup let(s) and as 201 run(s). Some of the ventricular beats occurred in bigeminal cycles. 624 suprav entricular ectopics, which represented 1% of the total beat count, were noted. The highest supravent ricular ectopic frequency occurred from 11:00 PM to 12:00 AM Fri. During this time 51 SVE(s) occurre d. No episodes of ST depression (defined as -1.0 mm or more) were noted in channel 1. No episode s of ST depression (defined as -1.0 mm or more) were noted in channel 2. No episodes of ST depressio n (defined as -1.0 mm or more) were noted in channel 3. The baseline rhythm was sinus. No diary was p rovided. There were multiple episodes of NSVT that were polymorphic. The longest was 6 beats. The e pisodes were throughout the day and is concerning for ischemia. TEST INTERPRETATION: ABNORNAL HOLTER: Baseline rhythm was sinus. No atrial fibrillation was gonzalo reciated. There were multiple episodes of NSVT that were polymorphic. The longest was 6 beats. The episodes were throughout the day and is concerning for ischemia. Clinical correlation required. Signed by : Loreta Turner
[2018-06-03] MEDS: Insulin NovoLOG Aspart Correctional Sugar Inj SQ SCH ×4 (08:00→20:29)
[2018-06-03] MEDS: Aspirin 325 MG Tablet PO SCH (10:25)
[2018-06-03] MEDS: Metoprolol Tartrate 25 MG Tablet PO SCH ×2 (10:26→20:28)
[2018-06-03] MEDS: Lisinopril 10 MG Tablet PO SCH ×2 (10:26→20:29)
[2018-06-03] MEDS: Heparin - SQ 10,000 UNITS/ML Vial SQ SCH ×2 (10:28→20:27)
[2018-06-03 10:52] LABS: Creatine Kinase 42 U/L (39-308)
[2018-06-03 11:00] LABS: Potassium 4.3 meq/L (3.5-5.1)
[2018-06-03 11:02] LABS: Calcium 8.6 mg/dL (8.5-10.1)
[2018-06-03 11:03] LABS: Carbon Dioxide 27.7 meq/L (21.0-32.0)
--- NOTE | 2018-06-03 11:57 | P.PN ---
Subjective Interval history: 82-year-old male who is seen and examined today for follow-up of acute CVA. Patient lying in bed comfortably. Denies any new complaints. Denies any chest pain, shortness of breath, dyspnea. Vital signs are stable, patient afebrile Physical Exam Vital signs: Vital Signs 06/02/18 15:11 06/02/18 20:00 06/03/18 00:00 Temperature 97 F L 97.6 F 96 F L Pulse Rate 58 L 63 74 Respiratory Rate 20 20 20 Blood Pressure 134/78 146/83 H 159/99 H Pulse Oximetry 92 L 95 96 06/03/18 01:15 06/03/18 04:00 06/03/18 08:14 Temperature 96 F L 96.4 F L Pulse Rate 55 L 58 L Respiratory Rate 20 20 Blood Pressure 136/80 157/86 H 144/85 H Pulse Oximetry 96 93 L 06/03/18 11:30 Temperature 96.8 F L Pulse Rate 56 L Respiratory Rate 20 Blood Pressure 140/80 Pulse Oximetry 93 L Intake & Output 06/02/18 06/03/18 06/03/18 18:59 06:59 18:59 Intake Total 840 / 840 720 / 720 Balance 840 / 840 720 / 720 Weight 86.1 kg Intake: Oral 840 / 840 720 / 720 Other: # Voids 3 6 # Bowel Movements 1 Narrative: GENERAL: Well-developed, well-nourished, in no acute distress. alert and orientated HEENT: Head is normocephalic without any lesions or masses noted. Facial features have a mild droop on the left side. Eyes:Extraocular muscles are intact. Conjunctivae were clear. NECK: Supple without any masses. Trachea midline no deviation. No JVD, CARDIAC: Regular rhythm, regular rate. S1/S2 are heard. No murmurs gallops or rubs. LUNGS: Clear to auscultation bilaterally. No wheeze, rhonchi or rales. No use of accessory muscles on inspiration or expiration. ABDOMEN: Soft, nontender. Nondistended. Bowel sounds heard in all 4 quadrants. No organomegaly or masses. Negative rebound, negative guarding EXTREMITIES: No edema, pulses are equal bilaterally. No cyanosis or clubbing NEUROLOGY: Mood and affect appear appropriate. Cranial nerves II through XII grossly intact. Moving all extremities, speech is clear Results - Labs CBC & Chem 7: 05/30/18 19:25 06/03/18 08:30 Laboratory Results - last 24 hr 06/02/18 06/02/18 06/03/18 15:53 21:00 08:09 Sodium Potassium Chloride Carbon Dioxide Anion Gap BUN Creatinine Estimated GFR POC Glucose 206 H 120 H 126 H Random Glucose Calcium Magnesium Total Creatine Kinase Troponin I 06/03/18 06/03/18 08:30 08:30 Sodium 139 Potassium 4.3 Chloride 105 Carbon Dioxide 27.7 Anion Gap 6 BUN 20 H Creatinine 1.00 Estimated GFR 72 L POC Glucose Random Glucose 127 H Calcium 8.6 Magnesium 2.0 Total Creatine Kinase 42 Troponin I Less than 0.02 L - Procedures ECHOCARDIOGRAM CONCLUSIONS The left ventricular systolic function is moderately reduced with an estimated ejection fraction in the range of 40-45%. Wall thickness is measured at the upper limits of normal. Normal left ventricular size. The left atrial size is moderately dilated. Mild mitral valve regurgitation. There is mild tricuspid valve regurgitation. The estimated pulmonary arterial pressure is 30.6 mmHg. Mild mitral valve regurgitation. HOLTER MONITOR ABNORNAL HOLTER: Baseline rhythm was sinus. No atrial fibrillation was appreciated. There were multiple episodes of NSVT that were polymorphic. The longest was 6 beats. The episodes were throughout the day and is concerning for ischemia. Clinical correlation Assessment and Plan - Assessment (1) Acute cerebrovascular accident (CVA) Code(s): I63.9 - Cerebral infarction, unspecified Status: Acute - Plan Acute cerebrovascular accident, NIH score 0 -Patient presented with acute onset of left-sided numbness to include his face, tongue, left arm, left leg. -CT scan was done which did not indicate any acute abnormality -MRI of the brain was performed which did show a focal infarct measuring 8 mm in the right thalamic -MRA of the brain was performed which did show short area of stenosis in the P2 -Carotid ultrasound did show increased velocities on the right side, -CTA of the carotid artery did indicate 45-50% stenosis of the proximal right internal carotid secondary to calcified plaque. There is a focal critical up to 90% stenosis of the cavernous left carotid artery secondary to eccentric noncalcified plaque. -CTA of the brain did not indicate any acute abnormalities -Echocardiogram indicated ejection fraction 40-45% with mild left ventricular dysfunction. Right ventricle and atrium are normal size. There is mild tricuspid and mitral regurgitation -PT/OT/ST evaluations: OT recommends home with no OT recommendations. Speech therapy recommended regular diet with thin liquids. And recommended skilled speech services 3-5 times weekly with home health versus outpatient for the dysarthria. Physical therapy recommending home with home health PT -Holter monitor: Was abnormal with 22,737 ventricular ectopies. Representing 27 % of the total beat count. The episodes were throughout the day and is concerning for ischemia. -Consult neurologist for recommendations -Neurologist recommending cardiology consult for loop recorder placement -Telemetry was reviewed extensively. Patient does have rather frequent PVCs with episodes of bigeminy and trigeminy. -Continue full dose aspirin, neurologist is recommending heparin 5000 units subcutaneous every 12 hours and starting Coumadin for anticoagulation. -After much discussion with neurologist, health analytics consultant, patient's family. His come to inclusion that the patient will stay in the hospital and have loop recorder placed on Monday. Respecting the patient family's wishes will only continue aspirin for anticoagulation at this time. -Discussed with health analytics consultant about the results of the Holter monitor, ventricular ectopies, concerning for ischemia. Since patient is asymptomatic, at this time there recommending continuation with placement of the loop recorder. They will evaluate the loop recorder for the ventricular ectopies after is placed. Possibly pursue stress test and/or cardiac catheterization at that time if loop recorder does continue to indicate abnormality. Hypertension, hyperlipidemia: -Continue Lopressor 12.5 mg twice daily -Continue lisinopril 10 mg twice daily -Continue atorvastatin 20 mg daily -LDL was 120 Diabetes -A1c 7.5 -Accu-Cheks with sliding scale insulin -We will restart metformin this afternoon, 48 hours after contrasted images DVT prevention -Sequential compression devices Discharge Planning: Discharge planning on 06/04/18 after loop recorder placement
--- NOTE | 2018-06-03 12:00 | P.DCO ---
- Physical Therapy Order: Evaluate and treat, Improve ambulation, Strength and gait training - Occupational Therapy Order: Evaluate and treat, Improve ADL, Fine motor coordination - Speech Therapy Order: To improve: Speech and communication skills, Swallowing - Home Health Nursing Order: Medical education, Signs/symptoms of disease process - Certification I have seen patient Perez Amin on 06/03/18. My clinical findings support the need for the requested home health care services because: Limited mobility due to disease progression I certify that my clinical findings support that this patient is homebound because: Unsteady gait/balance
--- NOTE | 2018-06-03 17:34 | ECG ---
Date Performed: 06/03/2018 Time Performed: 09:10:42 PTAGE: 82 years EKG: SINUS BRADYCARDIA WITH FREQUENT VENTRICULAR PREMATURE COMPLEXES IN A BIGEMINAL PATTERN NONS PECIFIC ST & T-WAVE ABNORMALITY ABNORMAL RHYTHM ECG NO PREVIOUS TRACING DOCTOR: Loreta Turner Interpretating Date/Time 06/03/2018 17:34:02
--- NOTE | 2018-06-04 08:35 | P.PNNEU ---
Subjective Subjective Comments: No acute events reported Active Medications: Active Medications Aspirin (Aspirin) 325 mg PO DAILY [facility] Last Admin: 06/03/18 10:25 Dose: 325 mg Atorvastatin Calcium (Lipitor) 20 mg PO DAILY [facility] Last Admin: 06/03/18 10:26 Dose: 20 mg Dextrose (D50w Vial) 50 ml IV.PUSH UNSCH PRN PRN Reason: PER HYPOGLYCEMIA PROTOCOL Enalaprilat (Vasotec Inj) 1.25 mg IV.PUSH Q6H PRN PRN Reason: SBP>160, DBP>90 Glucagon (Glucagon Inj) 1 mg OTHER PRN PRN PRN Reason: for Hypoglycemia Protocol Heparin Sodium (Porcine) (Heparin Inj) 5,000 units SQ Q12HR [facility] Last Admin: 06/03/18 20:27 Dose: Not Given Insulin Aspart (Novolog Insulin Correctional Sugar Inj) 0 unit SQ [facility]; Protocol Last Admin: 06/03/18 20:29 Dose: Not Given Lisinopril (Prinivil) 10 mg PO BID [facility] Last Admin: 06/03/18 20:29 Dose: 10 mg Metformin HCl (Glucophage) 500 mg PO DAILY [facility] Last Admin: 06/03/18 10:28 Dose: Not Given Metoprolol Tartrate (Lopressor) 12.5 mg PO BID [facility] Last Admin: 06/03/18 20:28 Dose: 12.5 mg Tamsulosin HCl (Flomax) 0.4 mg PO DAILY [facility] Last Admin: 06/03/18 10:26 Dose: 0.4 mg Allergies/Adverse Reactions: Allergies Allergy/AdvReac Type Severity Reaction Status Date / Time No Known Allergies Allergy Severe Uncoded 12/24/09 09:29 Physical Exam Vital signs: Vital Signs 06/03/18 11:30 06/03/18 15:08 06/03/18 20:00 Temperature 96.8 F L 97.1 F L 97.5 F L Pulse Rate 56 L 57 L 75 Respiratory Rate 20 20 20 Blood Pressure 140/80 146/69 H 125/72 Pulse Oximetry 93 L 95 96 06/04/18 00:00 06/04/18 04:00 Temperature 97.3 F L 97.5 F L Pulse Rate 63 74 Respiratory Rate 16 18 Blood Pressure 137/79 133/65 Pulse Oximetry 97 96 Intake & Output 06/03/18 06/04/18 06/04/18 18:59 06:59 18:59 Intake Total 1160 / 1160 Balance 1160 / 1160 Weight 84.6 kg Intake: Oral 1160 / 1160 Other: # Voids 4 1 Narrative: still feels a little numb left side vff 5/5 t/o nl speech and face Objective Laboratory Results - last 24 hr 06/03/18 06/03/18 06/03/18 08:30 08:30 11:49 Sodium 139 Potassium 4.3 Chloride 105 Carbon Dioxide 27.7 Anion Gap 6 BUN 20 H Creatinine 1.00 Estimated GFR 72 L POC Glucose 118 H Random Glucose 127 H Calcium 8.6 Magnesium 2.0 Total Creatine Kinase 42 Troponin I Less than 0.02 L 06/03/18 06/03/18 06/04/18 17:17 20:26 08:05 Sodium Potassium Chloride Carbon Dioxide Anion Gap BUN Creatinine Estimated GFR POC Glucose 128 H 127 H 134 H Random Glucose Calcium Magnesium Total Creatine Kinase Troponin I Review/Management - Review/Management Plan: imp r thalamic infarct and sign left intracranial carotid stenosis 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 only echo la 52 ef 40-50% ldl 120 plan I think the best route is coumadin to cover for possible afib with the lae and loop placed and statin if this can be instituted by med team with some sq hep started before first coumadin dose the best and would need daily inr over weekend step daughter i italked to and she thought he would not take meds but he says he did not in past but will now and agrees to coumdain med team contacted and they will work on it the coumadin will also cover the left stenosis ica well if fact in study with therapeutic inr those patients did better than antiplatelets for recurrent cva 06/04/18 sr pvc he has elected asa i rec coumadin but will go with his wishes loop today then dc and fu cards some ? of ischemia cardiac? on holter but no afib seen asa 325 and statin i will sign off
[2018-06-04] MEDS: Heparin - SQ 10,000 UNITS/ML Vial SQ SCH ×2 (08:40→11:54)
[2018-06-04] MEDS: Aspirin 325 MG Tablet PO SCH (08:41)
[2018-06-04] MEDS: Metoprolol Tartrate 25 MG Tablet PO SCH (08:42)
[2018-06-04] MEDS: Lisinopril 10 MG Tablet PO SCH (08:42)
[2018-06-04] MEDS: Insulin NovoLOG Aspart Correctional Sugar Inj SQ SCH ×2 (09:00→12:31)
--- NOTE | 2018-06-04 11:00 | MB ---
cc: Petr Crum DO DATE: 06/04/2018 REASON FOR CONSULTATION: CVA for consideration of loop recorder. HISTORY OF PRESENT ILLNESS: Perez Amin is a pleasant 82-year-old male who presented to [facility] Emergency Room in [place] due to acute onset of neurological symptoms. Apparently, the patient had acute onset of left upper extremity numbness and weakness as well as left facial numbness and numbness of his left side of his tongue. He presented within 1 hour of onset of symptoms. He has since had resolution of his symptoms. He was seen by Neurology, which had him undergo an MRI, which showed a small focal acute infarction measuring 8 mm in the right thalamic area. Because of this, as well as his risk factors, Neurology felt that he should have a loop recorder placed as well as be started on anticoagulation for presumed fibrillation. Neurology discussed this with the patient's daughter, Eddie Grace Riggins who is a hospitalist in [facility]. At that time, it was felt that anticoagulation should be held until there is definitive diagnosis of atrial fibrillation, but she agrees that the loop recorder should be placed. During the workup, a Holter monitor was placed, which showed no atrial fibrillation, but did show 22,000 PVCs. In seeing Mr. Amin, he is currently asymptomatic other than some mild numbness at the tips of his fingers. Otherwise, neurologically everything has resolved. He denies chest pain, shortness of breath or palpitations. He plays tennis 3 times a week at a high energy level without symptoms. PAST MEDICAL HISTORY: 1. Prediabetes. 2. Hypertension. 3. Hyperlipidemia. 4. Esophageal polyp. PAST SURGICAL HISTORY: 1. History of nasal surgery. 2. Polyp in the nasopharynx. ALLERGIES: NO KNOWN DRUG ALLERGIES. MEDICATIONS: 1. Flomax 0.4 mg daily. 2. Metformin 500 mg daily. FAMILY HISTORY: Denies premature coronary artery disease or sudden cardiac within the family. SOCIAL HISTORY: The patient denies tobacco, alcohol or drug abuse. REVIEW OF SYSTEMS: Fourteen systems were reviewed including osteopathic. Pertinent positives and negatives above, otherwise negative. PHYSICAL EXAMINATION: VITAL SIGNS: Temperature 98.1, heart rate 60, blood pressure 145/69, respirations 18, pulse oximetry 95% on room air. GENERAL: The patient appears well, in no acute distress. Alert, awake, and oriented x 3. HEENT: Extraocular muscles intact. Mucous membranes moist. NECK: Supple. No JVD at 45 degrees. No carotid bruits heard bilaterally. Carotid upstroke is brisk in nature. HEART: Regular rate and rhythm. Positive first and second heart sounds with no noted murmurs, gallops or rubs. LUNGS: Clear to auscultation bilaterally. No wheezes, rales or rhonchi. ABDOMEN: Soft, nontender, and nondistended. No organomegaly noted. EXTREMITIES: Show no clubbing, cyanosis or edema. Femoral and distal pulses intact bilaterally. NEUROLOGIC: He does have a numbness at the fingertips subjectively, no other focal deficits. SKIN: Warm, dry and intact. OSTEOPATHIC: No kyphoscoliosis, lordosis or paraspinal tender points. LABORATORY WORK: Hemoglobin 14.3, hematocrit 42.5, platelets 244. INR 1.1. Potassium 4.3, BUN 20, creatinine 1.0. Troponin less than 0.02. Electrocardiogram (06/03/2018 at 0910): Sinus bradycardia with occasional PVCs, nonspecific ST-T wave changes. IMPRESSION: 1. Acute right thalamic cerebrovascular accident with residual left fingertip numbness. 2. 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 2. Ejection fraction of 40-45% with mild mitral regurgitation, mild tricuspid regurgitation by echocardiogram (05/31/2018). 3. Hypertension. 4. Hyperlipidemia. 5. Diabetes mellitus. RECOMMENDATIONS: 1. Mr. Amin, I believe, should undergo loop recorder placement to rule out atrial fibrillation as I think that along with his other risk factors, he is at high risk for this. Risks, benefits and alternatives have been explained to him and his daughter over the phone and he consents for this. 2. Holter monitor was read as significant amount of PVCs concerning for ischemia. 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 He was also read as having short bursts of nonsustained ventricular tachycardia, but I believe the beats within these multiple episodes include a PAC with a right bundle branch pattern. 3. Overall, he is asymptomatic from a cardiovascular standpoint, especially with exercise. He does have a mild to moderate decrease in his overall ejection fraction. I did discuss with him and his daughter over the phone about consideration of an ischemic workup, although this is difficult as he has undergone an acute cerebrovascular accident. 4. After discussing for some time with the daughter, it was felt that we would treat him medically for now as he is asymptomatic, his troponin is negative, EKG shows no ischemia, and Holter monitor is felt to have a falsely high number of PVCs (which are felt to be actually PACs with aberrancy). 5. After loop recorder placement, he will most likely be discharged home to followup with me in the office. We will plan on discharging him on atorvastatin, lisinopril and metoprolol tartrate. 6. His loop recorder will be followed up in the office for atrial fibrillation, but also significant amount of PVCs. Thank you for allowing me to see Perez Amin. If there are any questions, please do not hesitate to call. Petr Crum, DO VGP/KD , 10:22 AM , 10:36 AM
--- NOTE | 2018-06-04 11:17 | P.DS ---
Date of admission: 05/31/18 11:37 Primary care physician: Wilbert Spain DO Brief History from admission: 82-year-old Urdu male with known history of hypertension, hyperlipidemia, diabetes who was noted to emergency department because acute onset of neurological symptoms. Patient indicates that he had acute onset of left upper extremity numbness, paresthesia, weakness, left facial numbness, paresthesia with some numbness to the left side of his tongue. Because of that the patient came directly to the hospital for evaluation. Patient presented within 1 hour of onset of symptoms. Patient had evaluation done emergency department. NIH score was 0. Patient has CT scan done which did not indicate any acute abnormality. Is recommended by the ER physician that the patient be observed in the hospital for further evaluation and management. 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 This was explained to the patient extensively. Also spoke with the patient's daughter and son-in-law who are both physicians, hospitalist in [facility]. Family members indicated the patient is likely been noncompliant with his treatment for hypertension, hyperlipidemia. Patient states that he still has residual numbness and paresthesia of the left upper and lower extremities. Still having some difficulty with speech and numbness of the left side of his tongue. DS: Medications - Discharge Medications Prescriptions: aspirin 325 mg PO DAILY #30 tab atorvastatin 20 mg PO HS #30 tab lisinopril 10 mg PO BID #60 tab metformin 500 mg PO DAILY #60 tab metoprolol tartrate 12.5 mg PO BID #60 tab tamsulosin 0.4 mg PO DAILY #30 tab DS: Summary Hospital Course: Clinical update at [place]: Patient was seen after the recorder was placed by Dr. Crum today. He has no pain. He is ambulating without any problems. With eating. No new motor deficit or sensory deficit. He denies any chest pain or shortness of breath no lightheadedness no palpitations. Says he wants to go home. Also Dr. Crum discussed with the patient and the patient daughter who is hospitalized at another hospital. They decided for cardiac cath to be done as outpatient. Also patient is cleared by neurology for discharge. Is decided by the patient and neurology to have aspirin 325 mg daily and continue statin. Hospital course: Acute cerebrovascular accident, NIH score 0 -Patient presented with acute onset of left-sided numbness to include his face, tongue, left arm, left leg. -CT scan was done which did not indicate any acute abnormality -MRI of the brain was performed which did show a focal infarct measuring 8 mm in the right thalamic -MRA of the brain was performed which did show short area of stenosis in the P2 -Carotid ultrasound did show increased velocities on the right side, -CTA of the carotid artery did indicate 45-50% stenosis of the proximal right internal carotid secondary to calcified plaque. There is a focal critical up to 90% stenosis of the cavernous left carotid artery secondary to eccentric noncalcified plaque. -CTA of the brain did not indicate any acute abnormalities -Echocardiogram indicated ejection fraction 40-45% with mild left ventricular dysfunction. Right ventricle and atrium are normal size. There is mild tricuspid and mitral regurgitation -PT/OT/ST evaluations: OT recommends home with no OT recommendations. Speech therapy recommended regular diet with thin liquids. And recommended skilled speech services 3-5 times weekly with home health versus outpatient for the dysarthria. Physical therapy recommending home with home health PT -Holter monitor: Was abnormal with 22,737 ventricular ectopies. Representing 27 % of the total beat count. The episodes were throughout the day and is concerning for ischemia. -Consult neurologist for recommendations -Neurologist recommending cardiology consult for loop recorder placement -Telemetry was reviewed extensively. Patient does have rather frequent PVCs with episodes of bigeminy and trigeminy. -Continue full dose aspirin, neurologist is recommending heparin 5000 units subcutaneous every 12 hours and starting Coumadin for anticoagulation. -After much discussion with neurologist, aeronautical design engineer, patient's family. His come to inclusion that the patient will stay in the hospital and have loop recorder placed on Monday. Respecting the patient family's wishes will only continue aspirin for anticoagulation at this time. -Discussed with aeronautical design engineer about the results of the Holter monitor, ventricular ectopies, concerning for ischemia. Since patient is asymptomatic, at this time there recommending continuation with placement of the loop recorder. They will evaluate the loop recorder for the ventricular ectopies after is placed. Possibly pursue stress test and/or cardiac catheterization at that time if loop recorder does continue to indicate abnormality. S/P loop recorder by Dr Torres Humphreys on 06/04/18 Cleared by cardiology and neurology for DC to followup as OP with PCP and consultants Patient decided for anticoagulation abdalla for ASA 325 mg daily Contniue ASA and statin at DC per neurology Hypertension, hyperlipidemia: -Continue Lopressor 12.5 mg twice daily -Continue lisinopril 10 mg twice daily -Continue atorvastatin 20 mg daily -LDL was 120 Diabetes -A1c 7.5 -Accu-Cheks with sliding scale insulin -We will restart metformin DVT prevention -Sequential compression devices Discharge Plannin06/04/18 after loop recorder placement DC home in stable condition to follow up as OP with PCP and consultants - Time Spent with Patient Total time spent providing and/or coordinating discharge services: Greater than 30 minutes - Quality: VTE Deep Vein Thrombosis/Pulmonary Embolism Present on Admission: No Exam Vital signs: Vital Signs 06/03/18 11:30 06/03/18 15:08 06/03/18 20:00 Temperature 96.8 F L 97.1 F L 97.5 F L Pulse Rate 56 L 57 L 75 Respiratory Rate 20 20 20 Blood Pressure 140/80 146/69 H 125/72 Pulse Oximetry 93 L 95 96 06/04/18 00:00 06/04/18 04:00 06/04/18 08:00 Temperature 97.3 F L 97.5 F L 98.1 F Pulse Rate 63 74 60 Respiratory Rate 16 18 18 Blood Pressure 137/79 133/65 145/69 H Pulse Oximetry 97 96 95 06/04/18 08:41 Temperature Pulse Rate Respiratory Rate 18 Blood Pressure Pulse Oximetry Intake & Output 06/03/18 06/04/18 06/04/18 18:59 06:59 18:59 Intake Total 1160 / 1160 Balance 1160 / 1160 Weight 84.6 kg Intake: Oral 1160 / 1160 Other: # Voids 4 1 Narrative: GENERAL: Well-developed, well-nourished, in no acute distress. alert and orientated HEENT: Head is normocephalic without any lesions or masses noted. Facial features have a mild droop on the left side. Eyes:Extraocular muscles are intact. Conjunctivae were clear. NECK: Supple without any masses. Trachea midline no deviation. No JVD, CARDIAC: S/P loop recorder placement, no pain, dressing c/d/i Regular rhythm, regular rate. S1/S2 are heard. No murmurs gallops or rubs. LUNGS: Clear to auscultation bilaterally. No wheeze, rhonchi or rales. No use of accessory muscles on inspiration or expiration. ABDOMEN: Soft, nontender. Nondistended. Bowel sounds heard in all 4 quadrants. No organomegaly or masses. Negative rebound, negative guarding EXTREMITIES: No edema, pulses are equal bilaterally. No cyanosis or clubbing NEUROLOGY: Mood and affect appear appropriate. Cranial nerves II through XII grossly intact. Moving all extremities, speech is clear Results Procedures completed during hospitalization: ECHOCARDIOGRAM CONCLUSIONS The left ventricular systolic function is moderately reduced with an estimated ejection fraction in the range of 40-45%. Wall thickness is measured at the upper limits of normal. Normal left ventricular size. The left atrial size is moderately dilated. Mild mitral valve regurgitation. There is mild tricuspid valve regurgitation. The estimated pulmonary arterial pressure is 30.6 mmHg. Mild mitral valve regurgitation. HOLTER MONITOR ABNORNAL HOLTER: Baseline rhythm was sinus. No atrial fibrillation was appreciated. There were multiple episodes of NSVT that were polymorphic. The longest was 6 beats. The episodes were throughout the day and is concerning for ischemia. Clinical correlation S/P loop recorder by Dr Torres Humphreys on 06/04/18 Labs on day of discharge: Labs from last 24 hours 06/04/18 06/03/18 06/03/18 08:05 20:26 17:17 POC Glucose 134 H 127 H 128 H 06/03/18 11:49 POC Glucose 118 H - Impressions ITS Impressions Head CT 05/30/18 19:33 CONCLUSION: 1. No acute intracranial abnormalities. . Carotid Doppler Study 05/31/18 00:00 CONCLUSION: 1. Moderate calcified atherosclerotic plaquing at the right carotid bifurcation. There is elevated velocity within the right internal carotid artery suggestive of at least a moderate stenosis. If clinically indicated, a CTA of the carotids could be performed for further evaluation. 2. Mild atherosclerotic plaquing at the left carotid bifurcation. No focal high -grade or hemodynamically significant stenosis. Head CTA 05/31/18 00:00 CONCLUSION: 1. Unremarkable MRA of the brain. Head MRI 05/31/18 00:00 CONCLUSION: 1. Small focal acute infarction measuring approximately 8 mm in the right thalamic area. 2. Bilateral cortical atrophy and chronic white matter changes characteristic for patient's age. Head MRA 05/31/18 00:00 CONCLUSION: 1. Focal short segment stenosis involving the P2 segment on the right. 2. Otherwise, the rest the examination is unremarkable. Neck CTA 05/31/18 00:00 CONCLUSION: 1. Abnormally elevated ultrasound velocities in the right carotid artery are likely related to a combination of moderate stenosis and severe angulation of the proximal right internal carotid artery. There is up to 45-50% stenosis of the proximal right internal carotid artery secondary to calcified plaque. There is up to 30% relative stenosis of the proximal internal carotid artery secondary to sharp angulation. 2. There is focal critical, up to 90%, stenosis of the cavernous left carotid artery secondary to eccentric noncalcified plaque. 3. Less than 30% stenosis of the left internal carotid artery origin secondary to eccentric calcified plaque. 4. Patent vertebral arteries bilaterally. Discharge Plan - Discharge Disposition Patient Disposition: /Home Health Service - Discharge Condition Condition: Stable - Discharge Order Discharge Orders: Discharge Order (Routine); Ordered 06/04/18 Ordered By: Elizabeth Bailey Cardiology Clear for Discharge (Routine); Ordered 06/04/18 Ordered By: Petr Crum - Physicians Team Primary Care Provider: Wilbert Spain Attending Provider: Elizabeth Bailey Other Providers: Jose E Irving MD
[2018-06-04] MEDS ORDERED: ceFAZolin Inj 2,000 MG in Sodium Chlor 0.9% Inj 100 ML IV.SIG ONE (12:00)
--- NOTE | 2018-06-04 12:45 | MR ---
cc: Petr Crum DO DATE: 06/04/2018 PROCEDURE PERFORMED: Medtronic Reveal LINQ loop recorder implantation (serial number [id number]). PREOPERATIVE DIAGNOSIS: Cerebrovascular accident of unknown cause. POSTOPERATIVE DIAGNOSIS: Cryptogenic stroke, status post loop recorder placement. MEDICATIONS: Augmentin 2 grams, Ancef 2 grams. ESTIMATED BLOOD LOSS: Minimal. INDICATIONS: Perez Amin is a pleasant 82-year-old male who presented to [facility] due to neurological issues with left arm numbness, left face numbness, left tongue numbness and slurred speech. Most of his symptoms have resolved other than mild numbness in his left fingertips. He was seen by Neurology and found to have an acute CVA and because of this, as there was no direct cause, was recommended loop recorder placement as he is at high risk for atrial fibrillation. Risks, benefits and alternatives were explained to him and he consented to such. PROCEDURE: He was brought to the DOC Unit and prepped in the usual sterile fashion. A small incision was made over the fourth intercostal, 2 inches lateral to the sternum. A Medtronic loop recorder was then inserted subcutaneously. First position was somewhat vertical and it was felt that PVCs were being missed and so the loop recorder was removed and repositioned at more of a 45-degree angle. R-waves were measured at 0.77 millivolts. Pressure was held over the loop recorder for hemostasis. The patient left the holding unit cardiovascularly stable. HARDWARE: Medtronic Reveal LINQ, [id number] (serial number [id number]). R-wave amplitude 0.77 millivolts. SETTINGS: Tachycardia greater than 150, bradycardia less than 30, pauses greater than 3 seconds, atrial fibrillation detection. IMPRESSION: 1. Acute cerebrovascular accident. 2. Frequent premature ventricular contractions and paroxysmal atrial contractions on Holter monitor (please see my consultation). 3. Hypertension. 4. Diabetes. 5. Hyperlipidemia. RECOMMENDATIONS: 1. Mr. Amin presented with an acute CVA and, as there was no known cause for this, as well as he is higher risk for atrial fibrillation, a loop recorder was placed. 2. Loop recorder will be followed in my office for evaluation for atrial fibrillation. 3. Please see my consultation about further recommendations from a cardiovascular standpoint in that he should have a stress test in my office in the next 4-6 weeks as we would like to avoid an ischemic evaluation at this time after my discussion with his daughter. 4. From my standpoint, he may be discharged home later today if stable, and will follow up with me in the office in the next few weeks. Thank you for allowing me to see Perez Amin. If there are any questions, please do not hesitate to call. DO YANIRA Liang/SB , 12:25 PM , 12:35 PM
== END 2018-06-04 14:35 | disposition home health service (06) ==
LOC: PHEDA 19:16 → PHED 19:16 → PH3 23:44 → N05 06-04 00:35
PROVIDERS: ADMIT Hospitalist; ATTEND Hospitalist